=== PATIENT | female | born 1965 | race Caucasian/White ===

== ENCOUNTER 2020-02-08 06:39 | Observation (INO) ==
[2020-02-08] MEDS ORDERED: *HR* Methadone 5 MG TABLET PO ONE (06:59)
[2020-02-08] MEDS ORDERED: Acetaminophen IV 1,000 MG/100 ML INFUS..BTL IVPB ONE (06:59)
[2020-02-08] MEDS ORDERED: Famotidine 20 MG/2 ML VIAL IVP ONE (06:59)
[2020-02-08] MEDS ORDERED: *HR* OxyCODONE Immed Rel 5 MG TABLET PO PRN (07:00)
[2020-02-08] MEDS ORDERED: Ondansetron 4 MG/2 ML VIAL IVP PRN (07:00)
[2020-02-08] MEDS ORDERED: *HR* Propofol 200 MG/20 ML VIAL IVP ONE (07:04)
[2020-02-08] MEDS ORDERED: *HR* FentaNYL (PF) 100 MCG/2 ML VIAL ONE (07:04)
[2020-02-08] MEDS ORDERED: *HR* Remifentanil 1 MG VIAL IVP ONE ×2 (07:04→10:03)
[2020-02-08] MEDS ORDERED: *HR* Midazolam HCl 2 MG/2 ML VIAL ONE (07:04)
[2020-02-08] MEDS ORDERED: Lidocaine -MPF 2% 2 ML VIAL ONE (07:05)
[2020-02-08] MEDS ORDERED: Dexamethasone 4 MG/ML VIAL ONE (07:05)
[2020-02-08] MEDS ORDERED: *HR* Phenylephrine 10 MG/ML VIAL ONE (07:05)
[2020-02-08] MEDS ORDERED: *HR* Succinylcholine 200 MG/10 ML VIAL IVP ONE (07:05)
[2020-02-08] MEDS ORDERED: Lidocaine -MPF 4% 5 ML AMPUL ONE (07:05)
[2020-02-08] MEDS ORDERED: Ondansetron 4 MG/2 ML VIAL ONE (07:05)
[2020-02-08] MEDS ORDERED: CeFAZolin Syr 3,000MG/30 ML 3,000 MG/30 ML SYRINGE IVPB ONE (07:17)
[2020-02-08] MEDS ORDERED: Ringers Solution, Lactated 1,000 ML IVC SCH ×2 (07:30→12:37)
[2020-02-08] MEDS ORDERED: Bacitracin 50,000 UNIT, Polymyxin B Sulfate 500,000 UNIT, Sodium Chloride IRRigation 1,... IR ONE (07:45)
[2020-02-08] MEDS: *HR* HYDROmorphone PF 0.5 MG/0.5 ML SYRINGE IVP PRN ×4 (11:45→12:10)
[2020-02-08] MEDS ORDERED: Furosemide 20 MG TABLET PO PRN (12:37)
[2020-02-08] MEDS ORDERED: Acetaminophen 325 MG TABLET PO PRN (12:37)
[2020-02-08] MEDS ORDERED: Naloxone 0.4 MG/ML INJ IVP PRN (12:37)
[2020-02-08] MEDS: *HR* OxyCODONE Immed Rel 5 MG TABLET PO PRN ×3 (12:58→20:20)
[2020-02-08] MEDS: *HR* HYDROcodone/Acet 5/325 mg TABLET PO PRN (14:22)
[2020-02-08] MEDS: CeFAZolin 2 GM/120 ML BAG IVPB SCH (15:57)
[2020-02-08] MEDS: Pregabalin 75 MG CAPSULE PO SCH (20:20)
[2020-02-09] MEDS: CeFAZolin 2 GM/120 ML BAG IVPB SCH (02:10)
[2020-02-09] MEDS: *HR* OxyCODONE Immed Rel 5 MG TABLET PO PRN ×4 (02:10→20:04)
[2020-02-09] MEDS: *HR* HYDROcodone/Acet 5/325 mg TABLET PO PRN ×2 (05:40→23:27)
[2020-02-09] MEDS: Ondansetron 4 MG/2 ML VIAL IVP PRN ×2 (07:43→19:51)
[2020-02-09] MEDS: Multivit/Ca/Min/Fe/FA 1 TAB TABLET PO SCH (07:46)
[2020-02-09] MEDS: Loratadine 10 MG TABLET PO SCH (07:46)
[2020-02-09] MEDS: Pregabalin 75 MG CAPSULE PO SCH ×2 (07:46→20:04)
[2020-02-10] MEDS: *HR* OxyCODONE Immed Rel 5 MG TABLET PO PRN ×4 (02:17→15:43)
[2020-02-10] MEDS: *HR* HYDROcodone/Acet 5/325 mg TABLET PO PRN ×2 (05:30→12:53)
[2020-02-10] MEDS: Multivit/Ca/Min/Fe/FA 1 TAB TABLET PO SCH (08:19)
[2020-02-10] MEDS: Pregabalin 75 MG CAPSULE PO SCH (08:19)
[2020-02-10] MEDS: Loratadine 10 MG TABLET PO SCH (08:19)
[2020-02-10] MEDS: Ondansetron 4 MG/2 ML VIAL IVP PRN (08:25)
[2020-02-10 10:59] VITALS: BP 154/93
[2020-02-14] MEDS ORDERED: Ergocalciferol (VIT D2) 50,000 UNIT (1.25MG) CAP PO SCH (11:23)
== END 2020-02-10 17:25 | disposition home health service (06) ==
LOC: SAMDAY 06:39 → 3NENU 06:39
PROVIDERS: ADMIT Orthopaedic Surgery Orthopaedic Surgery of the Spine; ATTEND Orthopaedic Surgery Orthopaedic Surgery of the Spine